=== PATIENT | male | born 1950 | race Two or more races ===

== ENCOUNTER 2021-12-12 09:15 | Inpatient (IN) | payer OTHER ==
[~2021-12-12] VITALS: Ht 167.6 cm; Wt 108.9 kg
[2021-12-12] MEDS ORDERED: ELIQUIS5 MG PO (11:07)
[2021-12-12] MEDS ORDERED: LOSARTAN POTAS100 MG PO (11:07)
[2021-12-12] MEDS ORDERED: ALLOPURINOL300 MG PO (11:08)
[2021-12-12] MEDS ORDERED: GLIMEPIRIDE2 MG (11:08)
[2021-12-12] MEDS ORDERED: RESTORIL30 M1 PO (11:09)
[2021-12-12] MEDS ORDERED: PROTONIX40 MG PO (11:10)
[2021-12-12] MEDS ORDERED: AZOR 5-20 MG T1 EACH PO (11:10)
[2021-12-12] MEDS ORDERED: MEMANTINE HCL5 MG PO (11:10)
[2021-12-12] MEDS ORDERED: GABAPENTIN300 M2 PO (11:11)
[2021-12-12] MEDS ORDERED: CHILDREN'S ASPI81 MG PO (11:11)
[2021-12-12] MEDS ORDERED: GEMFIBROZIL600 MG PO (11:12)
[2021-12-12] MEDS ORDERED: LASIX20 MG PO (11:12)
[2021-12-12] MEDS ORDERED: TOPROL XL50 M1 PO (11:12)
[2021-12-12] MEDS ORDERED: RIVASTIGMINE1 EACH TD (11:13)
== END 2021-12-19 16:50 | DRG 470 ==
LOC: O/R 12-17 05:50 → SURH 12-17 09:15 → SURG 12-17 12:43 → O/R 12-17 13:22 → SURH 12-18 14:12
PROVIDERS: ADMIT Orthopaedic Surgery; ATTEND Orthopaedic Surgery
PROC: 0SRC0J9 Replacement of Right Knee Joint with Synthetic Substitute, Cemented, Open Approach (ICD-10-PCS; principal; 2021-12-17 10:15)
DX: M17.11 Unilateral primary osteoarthritis, right knee (principal); D62 Acute posthemorrhagic anemia; E11.9 Type 2 diabetes mellitus without complications; I10 Essential (primary) hypertension; Z79.4 Long term (current) use of insulin